=== PATIENT | female | born 1980 ===

== ENCOUNTER 2021-08-23 09:58 | Inpatient (IN) | payer BC ==
[2021-08-23] MEDS ORDERED: Lidocaine 1% 30 ML SDV INJECT PRN (12:22)
[2021-08-23] MEDS ORDERED: Sodium Chloride 0.9% 10 ML Syringe FLUSH PRN ×2 (12:22→22:19)
[2021-08-23] MEDS ORDERED: Misoprostol 400 MCG (4 X 100 MCG TAB) RECTAL PRN ×2 (12:22→22:19)
[2021-08-23] MEDS ORDERED: Lactated Ringers 1,000 ML IV ONE (12:22)
[2021-08-23] MEDS ORDERED: Ondansetron 4 MG/2 ML SDV IVPUSH PRN (12:22)
[2021-08-23] MEDS ORDERED: Methylergonovine 0.2 MG/1 ML Amp IM PRN (12:22)
[2021-08-23] MEDS ORDERED: Tranexamic Acid 1,000 MG in Sodium Chloride 0.9% 100 ML IV PRN ×2 (12:22→22:19)
[2021-08-23] MEDS ORDERED: Acetaminophen 325 MG Tab PO PRN ×2 (12:22→22:19)
[2021-08-23] MEDS ORDERED: Carboprost Tromethamine 250 MCG/1 ML Amp IM PRN ×2 (12:22→22:19)
[2021-08-23] MEDS ORDERED: Oxytocin/Normal Saline 30 UNIT/500 ML BAG IV SCH (12:30)
[2021-08-23] MEDS: Lactated Ringers 1,000 ML IV SCH ×2 (15:10→16:30)
[2021-08-23] MEDS: Oxytocin/Normal Saline 30 UNIT/500 ML BAG IV SCH ×2 (15:40→22:31)
--- NOTE | 2021-08-23 16:16 | PCM.LDHP ---
<Virginia Bautista - Last Filed: 08/23/21 16:04> L&D History of Present Illness - General Date of Service: 08/23/21 Admit Problem/Dx: Patient Status Order with Admit Dx/Problem 08/23/21 12:23 Patient Status [ADT] Routine Admission Diagnosis/Problem Admission Diagnosis/Problem Labor without complication - History of Present Illness Introduction:: Safia is a 41 year old at 38 and 6/7 weeks gestation. Patient presented to clinic for routine visit and was found to be in labor. She relayed contractions began Monday afternoon, becoming more intense overnight and today. Upon examination in clinic she was unable to carry on conversation when shy, and was found to have cervical dilation to 2cm, 75% effacement, and station 0. Safia was directed to this L&D department for NST and tocometer evaluation. Contractions were tracing with regularity, Category 1 FHT with baseline in 140s. Repeat cervical exam did reveal change to 4cm dilated, 75% effaced, and station -1, labor is established and patient is admitted. Safia has had excellent care. Blood Type O+, rubella immune, GBS neg ative, all infectious diseases negative. Patient received Tdap. course was complicated only by advanced maternal age, and covid-19 infection 07/19/2021, which she had only mild symptoms and has recovered well. - Related Data Allergies/Adverse Reactions: Allergies Allergy/AdvReac Type Severity Reaction Status Date / Time No Known Allergies Allergy Verified 08/23/21 11:55 Home Medications: Home Meds Pnv,Calcium 72/Iron,Carb/Folic [ Plus Iron Tablet] 1 tab PO DAILY 08/23/21 [History] Past Medical History [employer] History: Reports: , Spontaneous - Infectious Disease History Infectious Disease History: Reports: Chicken Pox, Other (See Below) Other Infectious Disease History: unsure of measles. Had childhood vaccines. Social & Family History - Family History Family Medical History: No Pertinent Family History - Tobacco Use Tobacco Use Status *Q: Never Tobacco User Second Hand Smoke Exposure: No - Caffeine Use Caffeine Use: Reports: Coffee - Recreational Drug Use Recreational Drug Use: No H&P Review of Systems - Review of Systems: Review Of Systems: See Below Free Text/Narrative: Denies headaches, vision changes, fevers, chest pain, shortness of breath, RUQ pain, nausea, vomiting, vaginal bleeding, leakage of fluid, or extremity edema. Endorses contractions and good movement. L&D Exam - Exam Exam: See Below - Vital Signs Vital Signs: Last Vital Signs Temp 97.2 F 08/23/21 10:30 Pulse 85 08/23/21 11:20 Resp 14 08/23/21 10:30 BP 117/78 08/23/21 11:20 Pulse Ox Weight: 61.689 kg - OB Specific Contraction Duration (sec): 90-110 Contraction Frequency (min): 6-7 Contraction Intensity: Mild to Moderate Heart Tones: Present Heart Tones per Min: 140 Heart Rate (FHR) Variability: Moderate (6-25 bpm) - Wylie Score Wylie Score Cervix Position: Midposition Wylie Score Consistency: Soft Wylie Score Effacement: >80% Wylie Score Dilation: > 5 cm Wylie Score Infant's Station: -1 ,0 Wylie Score Total: 11 - Exam General: Alert, Oriented HEENT: PERRLA, Conjunctiva Clear, EACs Clear, EOMI, Hearing Intact, Mucosa Moist & [place], Nares Patent, Normal Nasal Septum, Posterior Pharynx Clear, TMs Clear Neck: Supple, Trachea Midline Lungs: Clear to Auscultation, Normal Respiratory Effort Cardiovascular: Regular Rate, Regular Rhythm GI/Abdominal Exam: Normal Bowel Sounds, Soft, Non-Tender, No Organomegaly, Pelvis Stable Genitourinary: Normal external exam, Cervical dilitation Back Exam: Normal Inspection, Full Range of Motion Extremities: Normal Inspection, No Pedal Edema Skin: Warm, Dry, Intact Neurological: Cranial Nerves Intact, Reflexes Equal Bilateral. No: Clonus Psychiatric: Alert, Normal Affect, Normal Mood - Patient Data Lab Results Last 24 hrs: Laboratory Results - last 24 hr 08/23/21 Range/Units 13:00 WBC 10.9 H (5.0-10.0) 10^3/uL RBC 4.22 (4.2-5.4) 10^6/uL Hgb 13.0 (12.0-16.0) g/dL Hct 37.9 (37.0-47.0) % MCV 89.8 (80-100) fL MCH 30.8 (27.0-34.0) pg MCHC 34.3 (33.0-35.0) g/dL Plt Count 224 (150-450) 10^3/uL Result Diagrams: 08/23/21 13:00 - Problem List (1) Advanced maternal age during SNOMED Code(s): 190942447 ICD Code: [id number] - Status: Acute Current Visit: Yes (2) Labor established SNOMED Code(s): 45716676 ICD Code: [id number] - Status: Acute Current Visit: Yes (3) Meconium in amniotic fluid affecting management of mother SNOMED Code(s): 30508867 ICD Code: O36.8990 - MATERNAL CARE FOR OTH PROBLEMS, UNSP TRIMESTER, UNSP Status: Acute Current Visit: Yes (4) History of COVID-19 SNOMED Code(s): 880398028889280544, 028678473767699778 ICD Code: Z86.16 - PERSONAL HISTORY OF COVID-19 Status: Acute Current Visit: Yes Problem List Initiated/Reviewed/Updated: Yes Orders Last 24hrs: Active Orders 24 hr Category Date Time Status Patient Status [ADT] Routine ADT 08/23/21 12:23 Active Communication Order [RC] ASDIRECTED Care 08/23/21 12:23 Active Notify Provider Vital Signs OB [RC] ASDIRECTED Care 08/23/21 12:23 Active Notify Provider [RC] PRN Care 08/23/21 12:23 Active Pump Management, Intrathecal [RC] ASDIRECTED Care 08/23/21 12:25 Active Up ad Yady [RC] ASDIRECTED Care 08/23/21 12:23 Active Vital Signs [RC] 08,20 Care 08/23/21 12:23 Active CORONAVIRUS COVID-19 SHERYL [MOLEC] Stat Lab 08/23/21 12:25 Ordered Acetaminophen [TylenoL] Med 08/23/21 12:22 Active 650 mg PO Q4H PRN Carboprost Tromethamine [Hemabate DS] Med 08/23/21 12:22 Active 250 mcg IM ASDIRECTED PRN Lactated Ringers [Ringers, Lactated] 1,000 ml Med 08/23/21 12:30 Active IV ASDIRECTED Lidocaine 1% [Xylocaine-MPF 1%] Med 08/23/21 12:22 Active 30 ml INJECT ASDIRECTED PRN Methylergonovine [Methergine] Med 08/23/21 12:22 Active 0.2 mg IM ASDIRECTED PRN Ondansetron [Zofran] Med 08/23/21 12:22 Active 4 mg IVPUSH Q4H PRN Oxytocin/Normal Saline [Pitocin in NS 30 UNIT/500 ML] Med 08/23/21 12:30 Active 30 unit in 500 ml IV TITRATE Oxytocin/Normal Saline [Pitocin in NS 30 UNIT/500 ML] Med 08/23/21 12:30 Active 30 unit in 500 ml IV TITRATE Sodium Chloride 0.9% [Saline Flush] Med 08/23/21 12:22 Active 10 ml FLUSH ASDIRECTED PRN Tranexamic Acid [Cyklokapron] 1,000 mg Med 08/23/21 12:22 Active Sodium Chloride 0.9% [Normal Saline] 100 ml IV ONETIME miSOPROStoL [Cytotec] Med 08/23/21 12:22 Active 800 mcg RECTAL ASDIRECTED PRN EFM External [ Heart Monitor External] [WOMSER] Oth 08/23/21 09:30 Orde red Per Unit Routine Saline Lock Insert [OM.PC] Routine Oth 08/23/21 12:23 Ordered Resuscitation Status Routine Resus Stat 08/23/21 12:22 Ordered Medication Orders Acetaminophen (Acetaminophen 325 Mg Tab) 650 mg PO Q4H PRN PRN Reason: Pain (Mild 1-3) and fever Carboprost Tromethamine (Carboprost Tromethamine 250 Mcg/1 Ml Amp) 250 mcg IM ASDIRECTED PRN PRN Reason: HEMORRHAGE Lactated Ringer's (Ringers, Lactated) 1,000 mls @ 125 mls/hr IV ASDIRECTED KATIUSKA Tranexamic Acid 1,000 mg/ (Sodium Chloride) 110 mls @ 660 mls/hr IV ONETIME PRN PRN Reason: Bleeding Oxytocin/Sodium Chloride (Pitocin In Ns 30 Unit/500 Ml) 30 unit in 500 mls @ 2 mls/hr IV TITRATE KATIUSKA; Protocol Oxytocin/Sodium Chloride (Pitocin In Ns 30 Unit/500 Ml) 30 unit in 500 mls @ 2 mls/hr IV TITRATE KATIUSKA; Protocol Lidocaine HCl (Lidocaine 1% 30 Ml Sdv) 30 ml INJECT ASDIRECTED PRN PRN Reason: Perineal Repair Methylergonovine Maleate (Methylergonovine 0.2 Mg/1 Ml Amp) 0.2 mg IM ASDIRECTED PRN PRN Reason: Hemorrhage Misoprostol (Misoprostol 400 Mcg (4 X 100 Mcg Tab)) 800 mcg RECTAL ASDIRECTED PRN PRN Reason: Hemorrhage Ondansetron HCl (Ondansetron 4 Mg/2 Ml Sdv) 4 mg IVPUSH Q4H PRN PRN Reason: Nausea/Vomiting Sodium Chloride (Sodium Chloride 0.9% 10 Ml Syringe) 10 ml FLUSH ASDIRECTED PRN PRN Reason: Keep Vein Open Assessment/Plan Comment:: Labor established. Anticipate normal spontaneous vaginal delivery. Will perform AROM when she progresses enough. Pitocin available if contractions space out. Plan for intrathecal for pain management. All of her questions have been answered, patient and her are in agreement with plan. Patient seen by myself and Dr. Bhandari. Assessment and Plan under advisement of Dr. Bhandari. <Viktoriya Bhandari - Last Filed: 08/24/21 11:12> L&D History of Present Illness - General Admit Problem/Dx: Patient Status Order with Admit Dx/Problem 08/23/21 12:23 Patient Status [ADT] Routine Admission Diagnosis/Problem Admission Diagnosis/Problem Vaginal delivery with potential for hemorrhage L&D Exam - Vital Signs Vital Signs: Last Vital Signs Temp 97.6 F 08/24/21 08:00 Pulse 85 08/24/21 08:00 Resp 16 08/24/21 08:00 BP 103/61 08/24/21 08:00 Pulse Ox 98 08/24/21 08:00 - Patient Data Lab Results Last 24 hrs: Laboratory Results - last 24 hr 08/23/21 08/24/21 Range/Units 13:00 05:45 WBC 10.9 H 17.9 H (5.0-10.0) 10^3/uL RBC 4.22 3.33 L (4.2-5.4) 10^6/uL Hgb 13.0 10.2 L D (12.0-16.0) g/dL Hct 37.9 30.2 L (37.0-47.0) % MCV 89.8 90.7 (80-100) fL MCH 30.8 30.6 (27.0-34.0) pg MCHC 34.3 33.8 (33.0-35.0) g/dL Plt Count 224 184 (150-450) 10^3/uL Result Diagrams: 08/24/21 05:45 Orders Last 24hrs: Active Orders 24 hr Category Date Time Status Patient Status [ADT] Routine ADT 08/23/21 12:23 Active Insert Urinary Catheter [OM.PC] Q24H Care 08/23/21 23:30 Ordered Notify Provider Vital Signs OB [RC] ASDIRECTED Care 08/23/21 22:19 Active Up ad Yady [RC] ASDIRECTED Care 08/23/21 22:19 Active Urinary Catheter Assessment [RC] ASDIRECTED Care 08/23/21 23:21 Active Vital Signs [RC] 08,20 Care 08/23/21 22:19 Active Consult to [employer] [CONS] Routine Cons 08/24/21 08:27 Active Regular Diet [DIET] Diet 08/23/21 Dinner Active Regular Diet [DIET] Diet 08/23/21 Lunch Active CBC WITH AUTO DIFF [HEME] Routine Lab 08/25/21 06:00 Ordered CORONAVIRUS COVID-19 SHERYL [MOLEC] Stat Lab 08/23/21 12:25 Stop Req Acetaminophen [TylenoL] Med 08/23/21 22:19 Active 650 mg PO Q6H PRN Benzocaine/Menthol [Dermoplast Pain Relief 20%-0.5% Med 08/23/21 22:19 Active [place]] See Dose Instructions TOP Q4H PRN Carboprost Tromethamine [Hemabate DS] Med 08/23/21 22:19 Active 250 mcg IM ASDIRECTED PRN Docusate Sodium [Colace] Med 08/23/21 22:19 Active 100 mg PO BID PRN Ibuprofen [Motrin] Med 08/23/21 22:19 Active 800 mg PO Q8H PRN Methylergonovine [Methergine] Med 08/24/21 09:15 Active 0.2 mg PO Q8H Oxytocin [Pitocin] Med 08/23/21 22:19 Active 10 unit IM ONETIME PRN Oxytocin/Normal Saline [Pitocin in NS 30 UNIT/500 ML] Med 08/23/21 12:30 Active 30 unit in 500 ml IV TITRATE Vit with Ca/FA/Iron [ Plus Iron] Med 08/24/21 09:00 Active 1 each PO DAILY Simethicone Med 08/23/21 22:19 Active 80 mg PO Q4H PRN Sodium Chloride 0.9% [Saline Flush] Med 08/23/21 22:19 Active 10 ml FLUSH ASDIRECTED PRN Tranexamic Acid [Cyklokapron] 1,000 mg Med 08/23/21 12:22 Active Sodium Chloride 0.9% [Normal Saline] 100 ml IV ONETIME miSOPROStoL [Cytotec] Med 08/23/21 22:19 Active 800 mcg RECTAL ONETIME PRN Assess Lochia [WOMSER] Per Unit Routine Oth 08/23/21 22:19 Ordered Assess Uterine Involution [WOMSER] Per Unit Routine Oth 08/23/21 22:19 Ordered Breast Pump [WOMSER] Per Unit Routine Oth 08/23/21 22:19 Ordered Ice Therapy [OM.PC] Per Unit Routine Oth 08/23/21 22:19 Ordered Perineal Care [OM.PC] Per Unit Routine Oth 08/23/21 22:19 Ordered Saline Lock Insert [OM.PC] Urgent Oth 08/23/21 22:19 Ordered Sitz Bath [OM.PC] Per Unit Routine Oth 08/23/21 22:19 Ordered Resuscitation Status Routine Resus Stat 08/23/21 12:22 Ordered Medication Orders Acetaminophen (Acetaminophen 325 Mg Tab) 650 mg PO Q6H PRN PRN Reason: Pain/Fever Benzocaine/Menthol (Benzocaine/Menthol 20%-0.5% [place] 78 Gm Cannister) 0 gm TOP Q4H PRN PRN Reason: Perineal comfort measures Last Admin: 08/24/21 00:04 Dose: 1 spray Documented by: JASMEET Carboprost Tromethamine (Carboprost Tromethamine 250 Mcg/1 Ml Amp) 250 mcg IM ASDIRECTED PRN PRN Reason: Excessive vaginal bleeding Docusate Sodium (Docusate Sodium 100 Mg Cap) 100 mg PO BID PRN PRN Reason: Constipation Tranexamic Acid 1,000 mg/ (Sodium Chloride) 110 mls @ 660 mls/hr IV ONETIME PRN PRN Reason: Bleeding Last Admin: 08/23/21 22:05 Dose: 660 mls/hr Documented by: JASMEET Oxytocin/Sodium Chloride (Pitocin In Ns 30 Unit/500 Ml) 30 unit in 500 mls @ 2 mls/hr IV TITRATE KATIUSKA; Protocol Last Titration: 08/24/21 01:50 Dose: 0 munits/min, 0 mls/hr Documented by: Titration: 08/24/21 00:45 Dose: 50 munits/min, 50 mls/hr Documented by: Titration: 08/23/21 23:41 Dose: 125 munits/min, 125 mls/hr Documented by: Admin: 08/23/21 22:31 Dose: 250 munits/min, 250 mls/hr Documented by: Titration: 08/23/21 22:30 Dose: 250 munits/min, 250 mls/hr Documented by: Titration: 08/23/21 22:14 Dose: 500 munits/min, 500 mls/hr Documented by: Titration: 08/23/21 21:55 Dose: 999 munits/min, 999 mls/hr Documented by: Titration: 08/23/21 20:10 Dose: 14 munits/min, 14 mls/hr Documented by: Titration: 08/23/21 19:35 Dose: 12 munits/min, 12 mls/hr Documented by: Titration: 08/23/21 18:49 Dose: 10 munits/min, 10 mls/hr Documented by: Titration: 08/23/21 18:30 Dose: 8 munits/min, 8 mls/hr Documented by: Titration: 08/23/21 17:40 Dose: 6 munits/min, 6 mls/hr Documented by: Titration: 08/23/21 17:26 Dose: 4 munits/min, 4 mls/hr Documented by: Admin: 08/23/21 15:40 Dose: 2 munits/min, 2 mls/hr Documented by: JAKE Ibuprofen (Ibuprofen 800 Mg Tab) 800 mg PO Q8H PRN PRN Reason: Cramping Last Admin: 08/24/21 03:06 Dose: 800 mg Documented by: SYLLMEG Methylergonovine Maleate (Methylergonovine 0.2 Mg Tab) 0.2 mg PO Q8H KATIUSKA Misoprostol (Misoprostol 400 Mcg (4 X 100 Mcg Tab)) 800 mcg RECTAL ONETIME PRN PRN Reason: Hemorrhage Oxytocin (Oxytocin 10 Units/1 Ml Sdv) 10 unit IM ONETIME PRN PRN Reason: Bleeding Prenat Multivit/[place]/Iron/Folic Ac ( Multivitamin With Calcium/Folic Acid/Iron Tab) 1 each PO DAILY KATIUSKA Simethicone (Simethicone 80 Mg Tab.Chew) 80 mg PO Q4H PRN PRN Reason: Gas Sodium Chloride (Sodium Chloride 0.9% 10 Ml Syringe) 10 ml FLUSH ASDIRECTED PRN PRN Reason: Keep Vein Open Assessment/Plan Comment:: Patient was personally seen and examined with the medical student. I reviewed the noted scribed on my behalf and necessary changes have been made to reflect my opinion on the history, exam, assessment, and plan. Viktoriya Bhandari MD
[2021-08-23] MEDS ORDERED: Sodium Chloride 0.9% 20 ML SDV ONE (16:20)
[2021-08-23] MEDS ORDERED: EPINEPHrine 1 MG/ML SDV ONE (16:20)
[2021-08-23] MEDS ORDERED: fentaNYL 100 MCG/2 ML SDV ITHECAL ONE (16:20)
[2021-08-23] MEDS ORDERED: fentaNYL 100 MCG/2 ML SDV ONE (16:20)
[2021-08-23] MEDS ORDERED: Sodium Bicarbonate 4.2% 2.5 MEQ/5 ML SDV ONE ×2 (16:20)
--- NOTE | 2021-08-23 16:48 | PCM.SN.2 ---
- Free Text/Narrative Note: Sitting position, sterile prep and drape. 1% lidocaine w bicarb for skinwheal to L3 L4 interspace. Introducer, 24 ga Pencan x 3.Pos CSF, neg heme, neg parasthesia. 0.1 ml 1:1000 pf epi, 0.4 ml PF NS, 15 mcg pf Sufenta, 35 mcg pf Fentanyl, and 6 mg of 0.75% pf Marcaine injected after CSF aspiration. Pt to L lateral position. Procedure time 1610 to 1645
[2021-08-23] MEDS ORDERED: Oxytocin 10 Units/1 ML SDV IM PRN (22:19)
[2021-08-23] MEDS ORDERED: Benzocaine/Menthol 20%-0.5% Spray 78 GM Cannister TOP PRN (22:19)
[2021-08-23] MEDS ORDERED: Simethicone 80 MG Tab.Chew PO PRN (22:19)
[2021-08-23] MEDS ORDERED: ceFAZolin 1 GM in Sodium Chloride 0.9% 50 ML IV ONE (22:27)
--- NOTE | 2021-08-23 22:59 | PCM.DEL ---
<Virginia Bautista M - Last Filed: 08/23/21 22:43> L & D Note - General Info Date of Service: 08/23/21 - Delivery Note Labor: Spontaneous Delivery Method: Spontaneous Vaginal Delivery-Single Laceration: 2nd Degree, Perineal Suture type: Vicryl Suture size: 3-0 Placenta: Spontaneous, Manual Removal, Meconium Stained Cord: 3 Vessels [place]: Suctioned, Bulb Syringe Score 1 min: 9 Score 5 min: 9 Post Delivery Events: Hemorrhage Delivery Comments (Free Text/Narrative):: Patient was admitted for onset of labor. Intrathecal anesthesia and nitrous oxide was provided for pain relief. She progressed to complete dilation and pushed for 22 minutes, placenta delivered 4 minutes later. Viable male infant delivered via at 2152 with apgars of 9&9. The anterior shoulder was delivered with gentle traction. The infant was placed on the maternal abdomen and the cord was clamped and cut. Placenta was delivered via active management. Patient was having a lot of bleeding, so pitocin was increased to maximum rate, rectal Cytotec placed, and tranexamic acid was initiated without cessation of hemorrhage. Manual exploration of uterus revealed retained membranes which were removed - due to manual exploration of uterus Ancef was given for prophylaxis. Cervix, vagina, and perineum were explored. A second degree perineal laceration was repaired in the usual fashion. Mother and were stable and remained in the delivery room. - General Info Date of Service: 08/23/21 Admission Dx/Problem (Free Text): Patient Status Order with Admit Dx/Problem 08/23/21 12:23 Patient Status [ADT] Routine Admission Diagnosis/Problem Admission Diagnosis/Problem Labor without complication Functional Status: Reports: Pain Controlled - Patient Data Vitals - Most Recent: Last Vital Signs Temp 98.3 F 08/23/21 19:00 Pulse 88 08/23/21 19:45 Resp 18 08/23/21 19:45 BP 102/65 08/23/21 19:45 Pulse Ox 97 08/23/21 19:30 Weight - Most Recent: 61.689 kg I&O - Last 24 Hours: Intake & Output 08/23/21 08/23/21 08/23/21 06:59 14:59 22:59 Intake Total 1000 Balance 1000 Lab Results Last 24 Hours: Laboratory Results - last 24 hr 08/23/21 Range/Units 13:00 WBC 10.9 H (5.0-10.0) 10^3/uL RBC 4.22 (4.2-5.4) 10^6/uL Hgb 13.0 (12.0-16.0) g/dL Hct 37.9 (37.0-47.0) % MCV 89.8 (80-100) fL MCH 30.8 (27.0-34.0) pg MCHC 34.3 (33.0-35.0) g/dL Plt Count 224 (150-450) 10^3/uL Med Orders - Current: Current Medications Acetaminophen (Acetaminophen 325 Mg Tab) 650 mg PO Q4H PRN PRN Reason: Pain (Mild 1-3) and fever Acetaminophen (Acetaminophen 325 Mg Tab) 650 mg PO Q6H PRN PRN Reason: Pain/Fever Benzocaine/Menthol (Benzocaine/Menthol 20%-0.5% [place] 78 Gm Cannister) 0 gm TOP Q4H PRN PRN Reason: Perineal comfort measures Carboprost Tromethamine (Carboprost Tromethamine 250 Mcg/1 Ml Amp) 250 mcg IM ASDIRECTED PRN PRN Reason: HEMORRHAGE Carboprost Tromethamine (Carboprost Tromethamine 250 Mcg/1 Ml Amp) 250 mcg IM ASDIRECTED PRN PRN Reason: Excessive vaginal bleeding Docusate Sodium (Docusate Sodium 100 Mg Cap) 100 mg PO BID PRN PRN Reason: Constipation Lactated Ringer's (Ringers, Lactated) 1,000 mls @ 125 mls/hr IV ASDIRECTED KATIUSKA Last Admin: 08/23/21 16:30 Dose: 125 mls/hr Documented by: Tranexamic Acid 1,000 mg/ (Sodium Chloride) 110 mls @ 660 mls/hr IV ONETIME PRN PRN Reason: Bleeding Last Admin: 08/23/21 22:05 Dose: 660 mls/hr Documented by: Oxytocin/Sodium Chloride (Pitocin In Ns 30 Unit/500 Ml) 30 unit in 500 mls @ 2 mls/hr IV TITRATE KATIUSKA; Protocol Last Admin: 08/23/21 22:31 Dose: 250 munits/min, 250 mls/hr Documented by: Oxytocin/Sodium Chloride (Pitocin In Ns 30 Unit/500 Ml) 30 unit in 500 mls @ 2 mls/hr IV TITRATE KATIUSKA; Protocol Cefazolin Sodium 1 gm/ Sodium (Chloride) 50 mls @ 100 mls/hr IV ONETIME ONE Stop: 08/23/21 22:56 Ibuprofen (Ibuprofen 800 Mg Tab) 800 mg PO Q8H PRN PRN Reason: Cramping Lidocaine HCl (Lidocaine 1% 30 Ml Sdv) 30 ml INJECT ASDIRECTED PRN PRN Reason: Perineal Repair Methylergonovine Maleate (Methylergonovine 0.2 Mg/1 Ml Amp) 0.2 mg IM ASDIRECTED PRN PRN Reason: Hemorrhage Misoprostol (Misoprostol 400 Mcg (4 X 100 Mcg Tab)) 800 mcg RECTAL ASDIRECTED PRN PRN Reason: Hemorrhage Last Admin: 08/23/21 22:01 Dose: 800 mcg Documented by: Misoprostol (Misoprostol 400 Mcg (4 X 100 Mcg Tab)) 800 mcg RECTAL ONETIME PRN PRN Reason: Hemorrhage Ondansetron HCl (Ondansetron 4 Mg/2 Ml Sdv) 4 mg IVPUSH Q4H PRN PRN Reason: Nausea/Vomiting Last Admin: 08/23/21 16:57 Dose: 4 mg Documented by: Oxytocin (Oxytocin 10 Units/1 Ml Sdv) 10 unit IM ONETIME PRN PRN Reason: Bleeding Prenat Multivit/Boundary/Iron/Folic Ac ( Multivitamin With Calcium/Folic Acid/Iron Tab) 1 each PO DAILY KATIUSKA Simethicone (Simethicone 80 Mg Tab.Chew) 80 mg PO Q4H PRN PRN Reason: Gas Sodium Chloride (Sodium Chloride 0.9% 10 Ml Syringe) 10 ml FLUSH ASDIRECTED PRN PRN Reason: Keep Vein Open Sodium Chloride (Sodium Chloride 0.9% 10 Ml Syringe) 10 ml FLUSH ASDIRECTED PRN PRN Reason: Keep Vein Open Discontinued Medications Epinephrine HCl (Epinephrine 1 Mg/Ml Sdv) Confirm Administered Dose 1 mg .ROUTE .STK-MED ONE Stop: 08/23/21 16:21 Last Admin: 08/23/21 20:20 Dose: Not Given Documented by: Fentanyl (Fentanyl 100 Mcg/2 Ml Sdv) Confirm Administered Dose 100 mcg .ROUTE .STK-MED ONE Stop: 08/23/21 16:21 Last Admin: 08/23/21 20:21 Dose: Not Given Documented by: Lactated Ringer's (Ringers, Lactated) 1,000 mls @ 9,999 mls/hr IV BOLUS ONE Stop: 08/23/21 12:27 Sodium Bicarbonate (Sodium Bicarbonate 4.2% 2.5 Meq/5 Ml Sdv) Confirm Administered Dose 2.5 meq .ROUTE .STK-MED ONE Stop: 08/23/21 16:21 Last Admin: 08/23/21 20:20 Dose: Not Given Documented by: Sufentanil Citrate (Sufentanil 50 Mcg/1 Ml Amp) Confirm Administered Dose 50 mcg .ROUTE .STK-MED ONE Stop: 08/23/21 16:21 Last Admin: 08/23/21 20:21 Dose: Not Given Documented by: - Problem List & Annotations (1) Advanced maternal age during SNOMED Code(s): 896085134 Code(s): [id number] - Status: Acute Current Visit: Yes (2) Labor established SNOMED Code(s): 08127368 Code(s): [id number] - Status: Acute Current Visit: Yes (3) Meconium in amniotic fluid affecting management of mother SNOMED Code(s): 72690483 Code(s): O36.8990 - MATERNAL CARE FOR OTH PROBLEMS, UNSP TRIMESTER, UNSP Status: Acute Current Visit: Yes (4) History of COVID-19 SNOMED Code(s): 003405039823448539, 446260274878467794 Code(s): Z86.16 - PERSONAL HISTORY OF COVID-19 Status: Acute Current Visit: Yes - Problem List Review Problem List Initiated/Reviewed/Updated: Yes - My Orders Last 24 Hours: My Active Orders 08/23/21 Breakfast Regular Diet [DIET] 08/23/21 Lunch Regular Diet [DIET] 08/23/21 12:22 Acetaminophen [TylenoL] 650 mg PO Q4H PRN Carboprost Tromethamine [Hemabate DS] 250 mcg IM ASDIRECTED PRN Lidocaine 1% [Xylocaine-MPF 1%] 30 ml INJECT ASDIRECTED PRN Methylergonovine [Methergine] 0.2 mg IM ASDIRECTED PRN Ondansetron [Zofran] 4 mg IVPUSH Q4H PRN Sodium Chloride 0.9% [Saline Flush] 10 ml FLUSH ASDIRECTED PRN Tranexamic Acid [Cyklokapron] 1,000 mg Sodium Chloride 0.9% [Normal Saline] 100 ml IV ONETIME miSOPROStoL [Cytotec] 800 mcg RECTAL ASDIRECTED PRN Resuscitation Status Routine 08/23/21 12:23 Patient Status [ADT] Routine Notify Provider Vital Signs OB [RC] ASDIRECTED Notify Provider [RC] PRN Up ad Yady [RC] ASDIRECTED Vital Signs [RC] 08,20 Saline Lock Insert [OM.PC] Routine 08/23/21 12:25 CORONAVIRUS COVID-19 SHERYL [MOLEC] Stat 08/23/21 12:30 Lactated Ringers [Ringers, Lactated] 1,000 ml IV ASDIRECTED Oxytocin/Normal Saline [Pitocin in NS 30 UNIT/500 ML] 30 unit in 500 ml IV TITRATE Oxytocin/Normal Saline [Pitocin in NS 30 UNIT/500 ML] 30 unit in 500 ml IV TITRATE 08/23/21 Dinner Regular Diet [DIET] 08/23/21 21:09 Nitrous Oxide Delivery [RC] ASDIRECTED 08/23/21 22:19 Notify Provider Vital Signs OB [RC] ASDIRECTED Up ad Yady [RC] ASDIRECTED Vital Signs [RC] PFP Acetaminophen [TylenoL] 650 mg PO Q6H PRN Benzocaine/Menthol [Dermoplast Pain Relief 20%-0.5% [place]] See Dose Instructions TOP Q4H PRN Carboprost Tromethamine [Hemabate DS] 250 mcg IM ASDIRECTED PRN Docusate Sodium [Colace] 100 mg PO BID PRN Ibuprofen [Motrin] 800 mg PO Q8H PRN Oxytocin [Pitocin] 10 unit IM ONETIME PRN Simethicone 80 mg PO Q4H PRN Sodium Chloride 0.9% [Saline Flush] 10 ml FLUSH ASDIRECTED PRN miSOPROStoL [Cytotec] 800 mcg RECTAL ONETIME PRN Assess Lochia [WOMSER] Per Unit Routine Assess Uterine Involution [WOMSER] Per Unit Routine Breast Pump [WOMSER] Per Unit Routine Ice Therapy [OM.PC] Per Unit Routine Perineal Care [OM.PC] Per Unit Routine Saline Lock Insert [OM.PC] Urgent Sitz Bath [OM.PC] Per Unit Routine 08/23/21 22:21 Patient Status Manage Transfer [TRANSFER] Routine 08/23/21 22:27 ceFAZolin [Ancef] 1 gm Sodium Chloride 0.9% [Normal Saline AdvBag] 50 ml IV ONETIME 08/23/21 23:00 OB Discontinue Nitrous Oxide [RC] ASDIRECTED 08/24/21 06:00 CBC W/O DIFF,HEMOGRAM [HEME] Routine CBC WITH AUTO DIFF [HEME] Routine 08/24/21 09:00 Vit with Ca/FA/Iron [ Plus Iron] 1 each PO DAILY - Plan Plan:: Labor established. Anticipate normal spontaneous vaginal delivery. Will perform AROM when she progresses enough. Pitocin available if contractions space out. Plan for intrathecal for pain management. All of her questions have been answered, patient and her are in agreement with plan. Patient seen by myself and Dr. Bhandari. Assessment and Plan under advisement of Dr. Bhandari. <Viktoriya Bhandari - Last Filed: 08/24/21 11:11> L & D Note - Delivery Note Labor: Augmented by ARM, Augmented by Oxytocin Delivery Outcome: Livebirth Presentation: Left Occiput Anterior (JUAN CARLOS) Estimated Blood Loss: 1,000 Delivery Comments (Free Text/Narrative):: Post hemorrhage following delivery of infant. TXA, rectal cytotec, and max pitocin given with no change in blood flow. Manual exploration done and retained placenta found in the fundus, very adherent. Ancef given for prophylaxis. EBL 1000 cc. Patient was personally seen and examined with the medical student. I reviewed the noted scribed on my behalf and necessary changes have been made to reflect my opinion on the history, exam, assessment, and plan. Viktoriya Bhandari MD - Patient Data Vitals - Most Recent: Last Vital Signs Temp 97.6 F 08/24/21 08:00 Pulse 85 08/24/21 08:00 Resp 16 08/24/21 08:00 BP 103/61 08/24/21 08:00 Pulse Ox 98 08/24/21 08:00 I&O - Last 24 Hours: Intake & Output 08/23/21 08/24/21 08/24/21 22:59 06:59 14:59 Intake Total 1000 1845 Output Total 350 Balance 1000 1495 Lab Results Last 24 Hours: Laboratory Results - last 24 hr 08/23/21 08/24/21 Range/Units 13:00 05:45 WBC 10.9 H 17.9 H (5.0-10.0) 10^3/uL RBC 4.22 3.33 L (4.2-5.4) 10^6/uL Hgb 13.0 10.2 L D (12.0-16.0) g/dL Hct 37.9 30.2 L (37.0-47.0) % MCV 89.8 90.7 (80-100) fL MCH 30.8 30.6 (27.0-34.0) pg MCHC 34.3 33.8 (33.0-35.0) g/dL Plt Count 224 184 (150-450) 10^3/uL Med Orders - Current: Current Medications Acetaminophen (Acetaminophen 325 Mg Tab) 650 mg PO Q6H PRN PRN Reason: Pain/Fever Benzocaine/Menthol (Benzocaine/Menthol 20%-0.5% Baxter 78 Gm Cannister) 0 gm TOP Q4H PRN PRN Reason: Perineal comfort measures Last Admin: 08/24/21 00:04 Dose: 1 spray Documented by: Carboprost Tromethamine (Carboprost Tromethamine 250 Mcg/1 Ml Amp) 250 mcg IM ASDIRECTED PRN PRN Reason: Excessive vaginal bleeding Docusate Sodium (Docusate Sodium 100 Mg Cap) 100 mg PO BID PRN PRN Reason: Constipation Tranexamic Acid 1,000 mg/ (Sodium Chloride) 110 mls @ 660 mls/hr IV ONETIME PRN PRN Reason: Bleeding Last Admin: 08/23/21 22:05 Dose: 660 mls/hr Documented by: Oxytocin/Sodium Chloride (Pitocin In Ns 30 Unit/500 Ml) 30 unit in 500 mls @ 2 mls/hr IV TITRATE KATIUSKA; Protocol Last Titration: 08/24/21 01:50 Dose: 0 munits/min, 0 mls/hr Documented by: Ibuprofen (Ibuprofen 800 Mg Tab) 800 mg PO Q8H PRN PRN Reason: Cramping Last Admin: 08/24/21 03:06 Dose: 800 mg Documented by: Methylergonovine Maleate (Methylergonovine 0.2 Mg Tab) 0.2 mg PO Q8H KATIUSKA Misoprostol (Misoprostol 400 Mcg (4 X 100 Mcg Tab)) 800 mcg RECTAL ONETIME PRN PRN Reason: Hemorrhage Oxytocin (Oxytocin 10 Units/1 Ml Sdv) 10 unit IM ONETIME PRN PRN Reason: Bleeding Prenat Multivit/Boundary/Iron/Folic Ac ( Multivitamin With Calcium/Folic Acid/Iron Tab) 1 each PO DAILY KATIUSKA Simethicone (Simethicone 80 Mg Tab.Chew) 80 mg PO Q4H PRN PRN Reason: Gas Sodium Chloride (Sodium Chloride 0.9% 10 Ml Syringe) 10 ml FLUSH ASDIRECTED PRN PRN Reason: Keep Vein Open Discontinued Medications Acetaminophen (Acetaminophen 325 Mg Tab) 650 mg PO Q4H PRN PRN Reason: Pain (Mild 1-3) and fever Carboprost Tromethamine (Carboprost Tromethamine 250 Mcg/1 Ml Amp) 250 mcg IM ASDIRECTED PRN PRN Reason: HEMORRHAGE Epinephrine HCl (Epinephrine 1 Mg/Ml Sdv) Confirm Administered Dose 1 mg .ROUTE .STK-MED ONE Stop: 08/23/21 16:21 Last Admin: 08/23/21 20:20 Dose: Not Given Documented by: Fentanyl (Fentanyl 100 Mcg/2 Ml Sdv) Confirm Administered Dose 100 mcg .ROUTE .STK-MED ONE Stop: 08/23/21 16:21 Last Admin: 08/23/21 20:21 Dose: Not Given Documented by: Lactated Ringer's (Ringers, Lactated) 1,000 mls @ 9,999 mls/hr IV BOLUS ONE Stop: 08/23/21 12:27 Lactated Ringer's (Ringers, Lactated) 1,000 mls @ 125 mls/hr IV ASDIRECTED KATIUSKA Last Admin: 08/23/21 16:30 Dose: 125 mls/hr Documented by: Oxytocin/Sodium Chloride (Pitocin In Ns 30 Unit/500 Ml) 30 unit in 500 mls @ 2 mls/hr IV TITRATE KATIUSKA; Protocol Cefazolin Sodium 1 gm/ Sodium (Chloride) 50 mls @ 100 mls/hr IV ONETIME ONE Stop: 08/23/21 22:56 Last Admin: 08/23/21 23:45 Dose: 100 mls/hr Documented by: Lidocaine HCl (Lidocaine 1% 30 Ml Sdv) 30 ml INJECT ASDIRECTED PRN PRN Reason: Perineal Repair Methylergonovine Maleate (Methylergonovine 0.2 Mg/1 Ml Amp) 0.2 mg IM ASDIRECTED PRN PRN Reason: Hemorrhage Misoprostol (Misoprostol 400 Mcg (4 X 100 Mcg Tab)) 800 mcg RECTAL ASDIRECTED PRN PRN Reason: Hemorrhage Last Admin: 08/23/21 22:01 Dose: 800 mcg Documented by: Ondansetron HCl (Ondansetron 4 Mg/2 Ml Sdv) 4 mg IVPUSH Q4H PRN PRN Reason: Nausea/Vomiting Last Admin: 08/23/21 16:57 Dose: 4 mg Documented by: Sodium Bicarbonate (Sodium Bicarbonate 4.2% 2.5 Meq/5 Ml Sdv) Confirm Administered Dose 2.5 meq .ROUTE .STK-MED ONE Stop: 08/23/21 16:21 Last Admin: 08/23/21 20:20 Dose: Not Given Documented by: Sodium Chloride (Sodium Chloride 0.9% 10 Ml Syringe) 10 ml FLUSH ASDIRECTED PRN PRN Reason: Keep Vein Open Sufentanil Citrate (Sufentanil 50 Mcg/1 Ml Amp) Confirm Administered Dose 50 mcg .ROUTE .STK-MED ONE Stop: 08/23/21 16:21 Last Admin: 08/23/21 20:21 Dose: Not Given Documented by: - My Orders Last 24 Hours: My Active Orders 08/23/21 23:21 Urinary Catheter Assessment [RC] ASDIRECTED 08/23/21 23:30 Insert Urinary Catheter [OM.PC] Q24H
[2021-08-24] MEDS: Ibuprofen 800 MG Tab PO PRN ×3 (03:06→23:07)
[2021-08-24] MEDS: Methylergonovine 0.2 MG Tab PO SCH ×2 (09:15→19:34)
--- NOTE | 2021-08-24 14:20 | PN ---
DATE: 08/24/2021 SUBJECTIVE: No acute overnight events. Pain is well controlled with Tylenol and Motrin. The patient is tolerating p.o. intake, ambulating well, adequate urine output, passing flatus, no bowel movement, yet. Bonding well with . nearly independently. The patient does relay concern for excessive bleeding, stating she bled the 2 pads since delivery. Denies lightheadedness, chest pain, shortness of breath, fevers, chills, nausea, vomiting. OBJECTIVE: Vital Signs: Heart rate 85, blood pressure 95/66, respiratory rate 18, temperature 97.6, O2 saturation 98% on room air. General: Alert, no distress, pale appearing. Lungs: Clear to auscultation bilaterally. Heart: Regular rate and rhythm without murmur. Abdomen: Soft, mildly tender. Uterus is firm and below the level of the umbilicus. Extremities: No edema. No clonus. LABORATORY DATA: Hemoglobin 10.2, this is down from 13 on admission consistent with 1000 mL EBL. Platelets down to 184 today from 224 on admission. ASSESSMENT: 1. hemorrhage requiring TXA, Cytotec, and Pitocin. 2. Meconium-stained placenta. 3. Artificial rupture of membranes with meconium-stained fluid. 4. Pitocin augmentation of normal labor. 5. Normal spontaneous vaginal delivery. 6. G3, now P2-0-1-2. 7. 38 and 6/7 weeks intrauterine , delivered. 8. Advanced maternal age. 9. Second-degree perineal lac, repaired. 10.Retained placenta requiring manual exploration of the uterus - Ancef given. 11.History of Covid-19 infection in third trimester. 12. . PLAN: Anticipate normal course. Due to concern for blood loss, plan to recheck a CBC in the morning prior to discharge. consultation to be completed today. Plan for discharge tomorrow morning pending clinical course. The patient understands and agree with the plan. All questions answered. The patient is seen by myself and Dr. Grant. Assessment and plan under advisement of Dr. Grant. MODL /[id number] [facility]
[2021-08-24] MEDS: Prenatal Multivitamin with Calcium/Folic Acid/Iron Tab PO SCH (14:52)
[2021-08-24] MEDS: Docusate Sodium 100 MG Cap PO PRN (21:05)
[2021-08-25] MEDS: Methylergonovine 0.2 MG Tab PO SCH ×2 (05:06→10:16)
[2021-08-25] MEDS ORDERED: Ferrous Sulfate 325 MG Tab PO SCH (08:00)
[2021-08-25] MEDS: Prenatal Multivitamin with Calcium/Folic Acid/Iron Tab PO SCH (08:18)
[2021-08-25] MEDS: Docusate Sodium 100 MG Cap PO PRN (08:19)
[2021-08-25] MEDS: Ibuprofen 800 MG Tab PO PRN (08:19)
--- NOTE | 2021-08-27 15:42 | PCM.DCSUM1 ---
Discharge Summary - Hospital Course Free Text/Narrative:: Safia is a 41yo who presented in active labor at 38 and 6/7 GA. course was only complicated by advanced maternal age and history of covid-19 infection in 3rd trimester. Safia originally presented for routine care when she was found to be in active labor, relaying contractions had started the night before, and were becoming more intense and regular by the time she presented for appointment. From completion to delivery was 22 minutes. Placenta delivered 4 minutes later. Delivery was complicated by PPH not responsive to Pitocin, rectal cytotec, or TXA. Manual exploration revealed retained placenta, which was removed and 2g Ancef given for infection prophylaxis. 2nd degree perineal lac was repaired in usual fashion. Safia was meeting routine discharge criteria, lochia was well controlled by date of discharge, as well as pain. Patient tolerating PO intake, ambulating, voiding and passing flatus. No bowel movement prior to discharge. her infant independently. Hbg 9.7 and platelets 186k on discharge. - Discharge Data Discharge Date: 08/25/21 Discharge Disposition: Home, Self-Care 01 Condition: Good - Referral to Home Health Primary Care Physician: Viktoriya Bhandari MD - Discharge Diagnosis/Problem(s) (1) Advanced maternal age during SNOMED Code(s): 697848258 ICD Code: [id number] - Status: Acute (2) Labor established SNOMED Code(s): 74756417 ICD Code: [id number] - Status: Acute (3) Meconium in amniotic fluid affecting management of mother SNOMED Code(s): 18696036 ICD Code: O36.8990 - MATERNAL CARE FOR OTH PROBLEMS, UNSP TRIMESTER, UNSP Status: Acute (4) History of COVID-19 SNOMED Code(s): [id number], [id number] ICD Code: Z86.16 - PERSONAL HISTORY OF COVID-19 Status: Acute - Patient Summary/Data Consults: Consultations 08/24/21 08:27 Consult to Art Tracer [CONS] Routine - Patient Instructions Diet: Regular Diet as Tolerated Activity: As Tolerated, No Lifting Over 20 Pounds Driving: Do Not Drive Notify Provider of: Fever, Increased Pain, Swelling and Redness, Drainage, Nausea and/or Vomiting - Discharge Plan *PRESCRIPTION DRUG MONITORING PROGRAM REVIEWED*: Yes *COPY OF PRESCRIPTION DRUG MONITORING REPORT IN PATIENT RICKEY: Yes Home Medications: Home Meds Pnv,Calcium 72/Iron,Carb/Folic [ Plus Iron Tablet] 1 tab PO DAILY 08/23/21 [History] Patient Handouts: Care of a Perineal Tear, Care After Vaginal Delive ry - Discharge Summary/Plan Comment DC Time >30 min.: Yes Total # of Minutes for Discharge Time: 40 - Patient Data Vitals - Most Recent: Last Vital Signs Temp 97.5 F 08/25/21 08:00 Pulse 92 08/25/21 08:00 Resp 18 08/25/21 08:00 BP 116/78 08/25/21 08:00 Pulse Ox 99 08/24/21 20:00 Weight - Most Recent: 61.689 kg Med Orders - Current: Current Medications Discontinued Medications Acetaminophen (Acetaminophen 325 Mg Tab) 650 mg PO Q4H PRN PRN Reason: Pain (Mild 1-3) and fever Acetaminophen (Acetaminophen 325 Mg Tab) 650 mg PO Q6H PRN PRN Reason: Pain/Fever Last Admin: 08/24/21 21:05 Dose: 650 mg Documented by: Benzocaine/Menthol (Benzocaine/Menthol 20%-0.5% [place] 78 Gm Cannister) 0 gm TOP Q4H PRN PRN Reason: Perineal comfort measures Last Admin: 08/24/21 00:04 Dose: 1 spray Documented by: Carboprost Tromethamine (Carboprost Tromethamine 250 Mcg/1 Ml Amp) 250 mcg IM ASDIRECTED PRN PRN Reason: HEMORRHAGE Carboprost Tromethamine (Carboprost Tromethamine 250 Mcg/1 Ml Amp) 250 mcg IM ASDIRECTED PRN PRN Reason: Excessive vaginal bleeding Docusate Sodium (Docusate Sodium 100 Mg Cap) 100 mg PO BID PRN PRN Reason: Constipation Last Admin: 08/25/21 08:19 Dose: 100 mg Documented by: Epinephrine HCl (Epinephrine 1 Mg/Ml Sdv) Confirm Administered Dose 1 mg .ROUTE .STK-MED ONE Stop: 08/23/21 16:21 Last Admin: 08/23/21 20:20 Dose: Not Given Documented by: Fentanyl (Fentanyl 100 Mcg/2 Ml Sdv) Confirm Administered Dose 100 mcg .ROUTE .STK-MED ONE Stop: 08/23/21 16:21 Last Admin: 08/23/21 20:21 Dose: Not Given Documented by: Fentanyl (Fentanyl 100 Mcg/2 Ml Sdv) 35 mcg ITHECAL .STK-MED ONE Stop: 08/23/21 16:21 Ferrous Sulfate (Ferrous Sulfate 325 Mg Tab) 325 mg PO WITHBREAKFAST KATIUSKA Last Admin: 08/25/21 08:18 Dose: 325 mg Documented by: Lactated Ringer's (Ringers, Lactated) 1,000 mls @ 9,999 mls/hr IV BOLUS ONE Stop: 08/23/21 12:27 Lactated Ringer's (Ringers, Lactated) 1,000 mls @ 125 mls/hr IV ASDIRECTED KATIUSKA Last Admin: 08/23/21 16:30 Dose: 125 mls/hr Documented by: Tranexamic Acid 1,000 mg/ (Sodium Chloride) 110 mls @ 660 mls/hr IV ONETIME PRN PRN Reason: Bleeding Last Admin: 08/23/21 22:05 Dose: 660 mls/hr Documented by: Oxytocin/Sodium Chloride (Pitocin In Ns 30 Unit/500 Ml) 30 unit in 500 mls @ 2 mls/hr IV TITRATE [facility]; Protocol Last Titration: 08/24/21 01:50 Dose: 0 munits/min, 0 mls/hr Documented by: Oxytocin/Sodium Chloride (Pitocin In Ns 30 Unit/500 Ml) 30 unit in 500 mls @ 2 mls/hr IV TITRATE [facility]; Protocol Cefazolin Sodium 1 gm/ Sodium (Chloride) 50 mls @ 100 mls/hr IV ONETIME ONE Stop: 08/23/21 22:56 Last Admin: 08/23/21 23:45 Dose: 100 mls/hr Documented by: Ibuprofen (Ibuprofen 800 Mg Tab) 800 mg PO Q8H PRN PRN Reason: Cramping Last Admin: 08/25/21 08:19 Dose: 800 mg Documented by: Lidocaine HCl (Lidocaine 1% 30 Ml Sdv) 30 ml INJECT ASDIRECTED PRN PRN Reason: Perineal Repair Methylergonovine Maleate (Methylergonovine 0.2 Mg/1 Ml Amp) 0.2 mg IM ASDIRECTED PRN PRN Reason: Hemorrhage Methylergonovine Maleate (Methylergonovine 0.2 Mg Tab) 0.2 mg PO Q8H KATIUSKA Last Admin: 08/25/21 10:16 Dose: Not Given Documented by: Misoprostol (Misoprostol 400 Mcg (4 X 100 Mcg Tab)) 800 mcg RECTAL ASDIRECTED PRN PRN Reason: Hemorrhage Last Admin: 08/23/21 22:01 Dose: 800 mcg Documented by: Misoprostol (Misoprostol 400 Mcg (4 X 100 Mcg Tab)) 800 mcg RECTAL ONETIME PRN PRN Reason: Hemorrhage Ondansetron HCl (Ondansetron 4 Mg/2 Ml Sdv) 4 mg IVPUSH Q4H PRN PRN Reason: Nausea/Vomiting Last Admin: 08/23/21 16:57 Dose: 4 mg Documented by: Oxytocin (Oxytocin 10 Units/1 Ml Sdv) 10 unit IM ONETIME PRN PRN Reason: Bleeding Prenat Multivit/[place]/Iron/Folic Ac ( Multivitamin With Calcium/Folic Acid/Iron Tab) 1 each PO DAILY [facility] Last Admin: 08/25/21 08:18 Dose: 1 each Documented by: Simethicone (Simethicone 80 Mg Tab.Chew) 80 mg PO Q4H PRN PRN Reason: Gas Sodium Bicarbonate (Sodium Bicarbonate 4.2% 2.5 Meq/5 Ml Sdv) Confirm Administered Dose 2.5 meq .ROUTE .STK-MED ONE Stop: 08/23/21 16:21 Last Admin: 08/23/21 20:20 Dose: Not Given Documented by: Sodium Bicarbonate (Sodium Bicarbonate 4.2% 2.5 Meq/5 Ml Sdv) 0.5 meq .XX .STK- MED ONE Stop: 08/23/21 16:21 Sodium Chloride (Sodium Chloride 0.9% 10 Ml Syringe) 10 ml FLUSH ASDIRECTED PRN PRN Reason: Keep Vein Open Sodium Chloride (Sodium Chloride 0.9% 10 Ml Syringe) 10 ml FLUSH ASDIRECTED PRN PRN Reason: Keep Vein Open Sodium Chloride (Sodium Chloride 0.9% 20 Ml Sdv) 0.4 ml .XX .STK-MED ONE Stop: 08/23/21 16:21 Sufentanil Citrate (Sufentanil 50 Mcg/1 Ml Amp) Confirm Administered Dose 50 mcg .ROUTE .STK-MED ONE Stop: 08/23/21 16:21 Last Admin: 08/23/21 20:21 Dose: Not Given Documented by: Sufentanil Citrate (Sufentanil 50 Mcg/1 Ml Amp) 15 mcg [facility]-MED ONE Stop: 08/23/21 16:21
== END 2021-08-25 09:30 | disposition home or self-care (01) | DRG 560 ==
LOC: DL.OBCHECK 09:58 → DL.OB 12:22 → UNDOADMOB 12:52 → DL.OB 22:21 → OBSVTOIN 22:21
PROVIDERS: ADMIT Family Medicine; ATTEND Family Medicine
PROC: 10E0XZZ Delivery of Products of Conception, External Approach (ICD-10-PCS; principal; 2021-08-23)
PROC: 0KQM0ZZ Repair Perineum Muscle, Open Approach (ICD-10-PCS; 2021-08-23)
PROC: 00HU33Z Insertion of Infusion Device into Spinal Canal, Percutaneous Approach (ICD-10-PCS; 2021-08-23)
PROC: 3E0R3BZ Introduction of Anesthetic Agent into Spinal Canal, Percutaneous Approach (ICD-10-PCS; 2021-08-23)
PROC: 10907ZC Drainage of Amniotic Fluid, Therapeutic from Products of Conception, Via Natural or Artificial Opening (ICD-10-PCS; 2021-08-23)
DX: O77.0 Labor and delivery complicated by meconium in amniotic fluid (principal); Z3A.38 38 weeks gestation of pregnancy; Z37.0 Single live birth; O70.1 Second degree perineal laceration during delivery; O72.1 Other immediate postpartum hemorrhage
CPT/HCPCS: 01967; 36415; 51701; 59409; 85025; 85027; A9270-GY; J0690; J2405; J2590; J3010; J7120